=== PATIENT | female | born 1945 | race Caucasian/White ===

== ENCOUNTER 2018-03-22 06:56 | Day surgery (SDC) | payer OTHER, SELFPAY ==
--- NOTE | 2018-03-22 | PATH_ITS ---
[facility] Accession Number: [id number] . 01 Material submitted: . PART A: CECAL POLYP PART B: COLON POLYP AT 40CM PART C: COLON POLYP AT 20CM . 02 Diagnosis: A. Cecum, Polyp, Biopsy: Benign lymphoid aggregate. Additional levels were examined. . B. Colon, Polyp at 40 cm, Biopsy: Benign lymphoid aggregate. Additional levels were examined. . C. Colon, Polyp at 20 cm, Biopsy: Fragments of hyperplastic polyp. Additional levels were examined. 03/24/2018 . 02 Electronically signed: . Kate Quesada MD, Pathologist NPI- [id number] . 01 Gross description: . Received three formalin-filled containers each labeled with the patient's name. . A. In a container labeled cecal polyp, the specimen consists of two 0.2 to 0.4 cm portions of tissue. Entirely submitted in cassette A. B. In a container labeled colon polyp at 40 cm are two 0.2 cm portions of tissue. Entirely submitted in cassette B. C. In a container labeled polyp at 20 cm are three 0.1 to 0.3 cm portions of tissue. Entirely submitted in cassette C. ([facility]:[id number]) /[facility] . 02 Pathologist provided ICD-10: K63.5 . 02 CPT . 001120, 461360, 192062 Specimen Comment: A duplicate report has been generated due to demographic updates. Performed at: 01 [facility] [address] [id number] MD Morris Lockhart MD Phone: [phone] Performed at: 02 [facility] [address] [place] [id number] MD Kate Quesada MD Phone: [phone]
[2018-03-22 07:30] VITALS: BP 123/72; PULSE 76; RESP 16; TEMP 36.2; O2SAT 94
[2018-03-22 07:34] VITALS: BMI 29.2
--- NOTE | 2018-03-22 08:02 | PM.HP.1 ---
History of Present Illness Date Patient Seen: 03/22/18 Time Patient Seen: 08:02 Chief complaint: [id number] SCREENING COLONOSCOPY Narrative: Patient is woman here for colonoscopy for screening purposes. Last exam was 6 years ago. Her grandmother and mother both of cancer of colon. She has had multiple scopes. Patient History Medical History Diabetes mellitus type 2 in obese (Chronic) Elevated cholesterol (Chronic) Essential hypertension with goal blood pressure less than 130/85 (Chronic) FH: mitral valve repair (Resolved) Family & Social History Social History: household members spouse Meds Home Medications Medication Instructions Recorded Confirmed Type pravastatin 20 mg PO HS #90 tab 05/15/16 Rx [ONETOUCH VERIO STRIP] 1 SEECOM TID #100 box 07/27/16 Rx [lancets] box TID #100 07/27/16 Rx gabapentin [Neurontin] 400 mg PO HS #90 cap 08/18/16 Rx metformin 1,000 mg PO BID #180 tab 08/18/16 Rx lisinopril 10 mg PO QDAY #90 tab 11/02/16 Rx methenamine hippurate [Hiprex] 0.5 gm PO BID #90 tab 01/12/17 Rx Allergies Allergy/AdvReac Type Severity Reaction Status Date / Time lactose Allergy Severe can't Verified 03/22/18 07:14 breathe/pressure on chest Review of Systems Review of Systems All systems reviewed & are unremarkable except as noted in HPI and below Exam Vital Signs (past 8 hours): - 03/22/18 07:30 Temperature 97.2 F L Pulse Rate 76 Respiratory Rate 16 Blood Pressure 123/72 Pulse Oximetry 94 Oxygen Delivery Method Room Air Narrative Exam Narrative: Pleasant overweight woman in no apparent distress. Her lungs are clear to auscultation no rales or rhonchi heart varies from irregularly irregular irregular rate and rhythm without murmur gallop abdomen is protuberant soft nontender without mass Assessment & Plan Plan: Assessment/Plan Narrative: Screening colonoscopy. I have discussed the procedure and the rationale with the patient including risks of bleeding, perforation which would necessitate a major operation, failure to find remove all lesions and the potential to tattoo. They appeared to understand and wished to proceed.
--- NOTE | 2018-03-22 08:07 | PM.PREOP ---
Pre-operative Note Interval Note Pre-op Check: Yes History & Physical exam performed today by Physician Changes: No ASA Class (for procedural sedation): III
[2018-03-22] MEDS: MIDAZOLAM 5 MG/5 ML VIAL IV (08:30)
[2018-03-22] MEDS: fentaNYL 250 MCG/5 ML INJ IV (08:33)
--- NOTE | 2018-03-22 08:40 | PM.OP.ENDO ---
Operative Date/Time/Diagnoses Date of procedure: 03/22/18 Time of procedure: 08:41 Pre-op diagnosis: Family history of colon cancer in grandmother and mother. Personal history of polyps. Last exam about 6 years ago. Post-op diagnosis: same (Small polyp like lesions in the cecum and at 40 cm. Submucosal mass clinically a lipoma at 20 cm.) Procedure & Clinicians Study performed: Colonoscopy with cold biopsy Same procedure as scheduled: Yes Indications: Screening Surgeon: Jason Mcgee Procedure Notes SCOAP/Timeout: Performed Procedure in detail: The patient was placed in the left lateral decubitus position and underwent IV sedation directed by the surgeon consisting of fentanyl and Versed. Digital exam was unremarkable. The scope was inserted and advanced through the rectum into the sigmoid, descending, transverse, and ascending colon. Patient was noted to have extensive diverticulosis of the sigmoid colon. The cecum was reached identified by the ileocecal valve and the appendiceal opening. There was a small irregular lesion which was probably a normal variant of mucosa but because it was slightly different I chose to remove it with biopsy forceps from the cecum. The scope was gradually brought out. Another small irregular area was removed at 40 cm from the anal verge. There was a submucosal mass at 20 cm that was soft pliable and was clinically a lipoma. I attempted deep biopsies. No other polyps were found. The scope ultimately was retroflexed in the rectum. The appearance was normal in appearance. The scope was removed and the patient tolerated the procedure well Scope withdrawal time: 12-1/2 minutes Sedation minutes: 26 Findings: diverticulosis (Sigmoid), polyp (Possible polyps at the cecum, 40 cm from the anal verge.) and other findings (Submucosal mass clinically a lipoma at 20 cm.) Specimen(s): other (Polyp/mass biopsies) Recommendations: Colonscopy in 5 years Follow up: as needed Disposition: PACU
[2018-03-22 08:45] VITALS: BP 101/61; PULSE 68; RESP 16; TEMP 36.8; O2SAT 98
[2018-03-22 09:05] VITALS: BP 100/61; PULSE 61; O2SAT 98
--- NOTE | 2018-03-22 09:14 | SUR.PHASEII ---
Pt arrived from endo on lt side, awake. Abd soft, denied pain. Juice and tea provided. Spouse brought to bedside.
== END 2018-03-22 09:27 | disposition home or self-care (01) ==
PROVIDERS: Family Provider Family Medicine; PCP Family Medicine; Visit Provider Specialist
PROC: 0DJD8ZZ Inspection of Lower Intestinal Tract, Via Natural or Artificial Opening Endoscopic (ICD-10-PCS; CPT 45378; principal; 2018-03-22 07:45)
DX: Z86.010 Personal history of colon polyps (principal); Z80.0 Family history of malignant neoplasm of digestive organs; K57.30 Diverticulosis of large intestine without perforation or abscess without bleeding; E11.9 Type 2 diabetes mellitus without complications; Z79.84 Long term (current) use of oral hypoglycemic drugs; E66.9 Obesity, unspecified; E78.00 Pure hypercholesterolemia, unspecified; I10 Essential (primary) hypertension; D12.0 Benign neoplasm of cecum; K63.5 Polyp of colon
CPT/HCPCS: 45380; 99152; 99153; J2250; J3010

== ENCOUNTER → 2018-08-30 10:42 | Outpatient (CLI) | payer OTHER, SELFPAY ==
--- NOTE | 2018-08-30 | DI.MG.S_ITS ---
BILATERAL DIGITAL SCREENING MAMMOGRAM 3D/2D WITH CAD: 08/30/2018 CLINICAL: Routine screening. Family history of breast cancer. Comparison is made to exams dated: 08/27/2017 mammogram, 08/13/2016 mammogram, and 08/13/2015 mammogram - [facility]. There are scattered fibroglandular elements in both breasts. Current study was also evaluated with a Computer Aided Detection (CAD) system. No significant masses, calcifications, or other findings are seen in either breast. There has been no significant interval change. IMPRESSION: NEGATIVE There is no mammographic evidence of malignancy. A 1 year screening mammogram is recommended. This exam was interpreted at Station ID: [id number]. NOTE: For mammograms, a report in lay terms will be sent to the patient. Approximately 15% of breast malignancies will not be visualized mammographically. In the management of a palpable breast mass, a negative mammogram must not discourage biopsy of a clinically suspicious lesion. Electronically Signed By: Gerardo koenig/richelle:08/30/2018 12:51:51 letter sent: Normal Exam ACR BI-RADS Category 1: Negative 3341F
== END ==
PROVIDERS: Family Provider Family Medicine; PCP Family Medicine; Visit Provider Nurse Practitioner Family
DX: Z12.31 Encounter for screening mammogram for malignant neoplasm of breast (principal); Z80.3 Family history of malignant neoplasm of breast
CPT/HCPCS: 77063; 77067

== ENCOUNTER → 2019-10-21 11:04 | Outpatient (CLI) | payer MEDICARE, OTHER, SELFPAY ==
--- NOTE | 2019-10-21 | DI.MG.S_ITS ---
BILATERAL DIGITAL SCREENING MAMMOGRAM 3D/2D WITH CAD: 10/21/2019 CLINICAL: Routine screening. Family history of breast cancer. Comparison is made to exams dated: 08/30/2018 mammogram, 08/27/2017 mammogram, and 08/13/2016 mammogram - [facility]. There are scattered fibroglandular elements in both breasts. Current study was also evaluated with a Computer Aided Detection (CAD) system. No significant masses, calcifications, or other findings are seen in either breast. There has been no significant interval change. IMPRESSION: NEGATIVE There is no mammographic evidence of malignancy. A 1 year screening mammogram is recommended. This exam was interpreted at Station ID: [id number]. NOTE: For mammograms, a report in lay terms will be sent to the patient. Approximately 15% of breast malignancies will not be visualized mammographically. In the management of a palpable breast mass, a negative mammogram must not discourage biopsy of a clinically suspicious lesion. Electronically Signed By: Gerardo koenig/richelle:10/23/2019 08:45:37 letter sent: Normal Exam ACR BI-RADS Category 1: Negative 3341F
== END ==
PROVIDERS: Family Provider Family Medicine; PCP Family Medicine; Referring Provider Family Medicine; Visit Provider Family Medicine
DX: Z12.31 Encounter for screening mammogram for malignant neoplasm of breast (principal); Z80.3 Family history of malignant neoplasm of breast
CPT/HCPCS: 77063; 77067

== ENCOUNTER → 2020-11-14 13:16 | Outpatient (CLI) | payer MEDICARE, OTHER, SELFPAY ==
--- NOTE | 2020-11-14 13:20 | DI.MG.S_ITS ---
BILATERAL DIGITAL SCREENING MAMMOGRAM 3D/2D WITH CAD: 11/14/2020 CLINICAL: Routine screening. Family history of breast cancer. Comparison is made to exams dated: 10/21/2019 mammogram, 08/30/2018 mammogram, and 08/27/2017 mammogram - [facility]. There are scattered fibroglandular elements in both breasts. Current study was also evaluated with a Computer Aided Detection (CAD) system. No significant masses, calcifications, or other findings are seen in either breast. There has been no significant interval change. IMPRESSION: NEGATIVE There is no mammographic evidence of malignancy. A 1 year screening mammogram is recommended. This exam was interpreted at Station ID: [id number]. NOTE: For mammograms, a report in lay terms will be sent to the patient. Approximately 15% of breast malignancies will not be visualized mammographically. In the management of a palpable breast mass, a negative mammogram must not discourage biopsy of a clinically suspicious lesion. Electronically Signed By: Gerardo koenig/richelle:11/14/2020 14:16:07 copy to: LUNA TELLEZ letter sent: Normal Exam ACR BI-RADS Category 1: Negative 3341F
== END ==
PROVIDERS: Family Provider Family Medicine; PCP Family Medicine; Referring Provider Family Medicine; Visit Provider Family Medicine
DX: Z12.31 Encounter for screening mammogram for malignant neoplasm of breast (principal); Z80.3 Family history of malignant neoplasm of breast
CPT/HCPCS: 77063; 77067

== ENCOUNTER → 2021-04-30 09:26 | Outpatient (CLI) | payer MEDICARE, OTHER, SELFPAY ==
[2021-04-30 22:47] LABS: COVID19 - ORCAS (NP or Nasal) Negative (Negative)
== END ==
PROVIDERS: Family Provider Family Medicine; PCP Family Medicine; Visit Provider Physician Assistant
DX: U07.1 COVID-19 (principal)
CPT/HCPCS: C9803; U0003

== ENCOUNTER → 2021-11-18 11:17 | Outpatient (CLI) | payer MEDICARE, OTHER, SELFPAY ==
--- NOTE | 2021-11-18 | DI.MG.S_ITS ---
BILATERAL DIGITAL SCREENING MAMMOGRAM 3D/2D WITH CAD: 11/18/2021 CLINICAL: Baseline exam Family history of breast cancer. Comparison is made to exams dated: 11/14/2020 mammogram, 10/21/2019 mammogram, and 08/30/2018 mammogram - [facility]. There are scattered fibroglandular elements in both breasts. Current study was also evaluated with a Computer Aided Detection (CAD) system. There are benign calcifications in both breasts. No significant masses, calcifications, or other findings are seen in either breast. There has been no significant interval change. IMPRESSION: BENIGN There is no mammographic evidence of malignancy. A 1 year screening mammogram is recommended. Based on the Tyrer Cuzick model (a risk assessment model) the patient's lifetime risk is 4.1% and her 10 year risk is 4.1%. According to the ACR, ACS, and NCCN guidelines, an annual breast MRI exam along with mammogram is recommended if the patient's lifetime risk is 20% or greater. This exam was interpreted at Station ID: [id number]. NOTE: For mammograms, a report in lay terms will be sent to the patient. Approximately 15% of breast malignancies will not be visualized mammographically. In the management of a palpable breast mass, a negative mammogram must not discourage biopsy of a clinically suspicious lesion. Electronically Signed By: Joseph griffin/richelle:11/18/2021 12:00:01 copy to: LUNA TELLEZ letter sent: Normal Exam ACR BI-RADS Category 2: Benign Finding(s) 3342F
== END ==
PROVIDERS: Family Provider Family Medicine; PCP Family Medicine; Referring Provider Physician Assistant; Visit Provider Physician Assistant
DX: Z12.31 Encounter for screening mammogram for malignant neoplasm of breast (principal); Z80.3 Family history of malignant neoplasm of breast
CPT/HCPCS: 77063; 77067